=== PATIENT | male | born 1985 | race Caucasian/White ===

== ENCOUNTER → 2016-12-03 | Outpatient (CLI) | payer OTHER, MEDICAID | LOC: BHFA 10:00 | PROVIDERS: ATTEND Internal Medicine Cardiovascular Disease | DX: Q23.1 Congenital insufficiency of aortic valve (principal) ==

== ENCOUNTER → 2016-12-15 | Outpatient (CLI) | payer OTHER, MEDICAID | LOC: BMCIMAGING 16:09 | PROVIDERS: ATTEND Physician Assistant | DX: S83.001A Unspecified subluxation of right patella, initial encounter (principal); S83.002A Unspecified subluxation of left patella, initial encounter; M25.761 Osteophyte, right knee; M25.762 Osteophyte, left knee; E66.01 Morbid (severe) obesity due to excess calories; Q90.9 Down syndrome, unspecified ==

== ENCOUNTER → 2018-01-27 | Outpatient (CLI) | payer OTHER, MEDICAID | LOC: BHFA 10:45 | PROVIDERS: ATTEND Internal Medicine Cardiovascular Disease | DX: Q23.1 Congenital insufficiency of aortic valve (principal) ==